=== PATIENT | male | born 1980 | race Caucasian/White ===

== ENCOUNTER 2017-07-27 08:42 | Day surgery (SDC) | payer OTHER ==
[2017-07-26 14:41] VITALS: BMI 21.2
[2017-07-27] MEDS ORDERED: PROPOFOL 20 ML ONE ×4 (09:25)
[2017-07-27 10:16] VITALS: TEMP 97.9
[2017-07-27 11:35] VITALS: BP 128/71; PULSE 81
== END 2017-07-27 11:47 | disposition home or self-care (01) ==
LOC: JASU-ENDO 08:42
PROVIDERS: ATTEND Internal Medicine Gastroenterology
PROC: 0DJD8ZZ Inspection of Lower Intestinal Tract, Via Natural or Artificial Opening Endoscopic (ICD-10-PCS; principal; 2017-07-27 09:00)
DX: K92.1 Melena (principal); R63.4 Abnormal weight loss; R10.9 Unspecified abdominal pain; K64.8 Other hemorrhoids